=== PATIENT | female | born 1985 | race Caucasian/White ===

== ENCOUNTER → 2018-08-21 | Outpatient (CLI) | payer OTHER | LOC: FIMAGING 10:11 | PROVIDERS: ATTEND Obstetrics & Gynecology | DX: O26.841 Uterine size-date discrepancy, first trimester (principal); Z3A.01 Less than 8 weeks gestation of pregnancy ==

== ENCOUNTER 2018-09-06 18:52 | Emergency (ER) | payer OTHER ==
--- NOTE | 2018-09-06 19:14 | EDPHY ---
H & P Stated Complaint: MISCARRIAGE 08/25 INCREASED HEAVY VAGINAL BLEEDING Time Seen by Provider: 09/06/18 19:10 HPI/ROS: CHIEF COMPLAINT: Vaginal bleeding HISTORY OF PRESENT ILLNESS: The patient is a 33-year-old female who comes to the emergency department complaining of vaginal bleeding and lightheadedness. She miscarried on the of this month a 9 week gestational age . She had a missed AB and was given an abortifacient by her OBGYN. She states that this seemed to go well and she bled for about 2 days with occasional passage of clots since then. She has not had significant bleeding this week until about an hour ago she states that she has used 3 pads and 3 tampons in the last hour. No fever. No nausea vomiting. No diarrhea. No urinary symptoms. Severity: Moderate Modifying factors: None REVIEW OF SYSTEMS: Constitutional: denies: chills, fever, recent illness, recent injury EENTM: denies: blurred vision, double vision, nose congestion Respiratory: denies: cough, shortness of breath Cardiac: denies: chest pain, irregular heart rate, lightheadedness, palpitations Gastrointestinal/Abdominal: denies: abdominal pain, diarrhea, nausea, vomiting, blood streaked stools Genitourinary: denies: dysuria, frequency, hematuria, pain Musculoskeletal: denies: joint pain, muscle pain Skin: denies: lesions, rash, jaundice, bruising Neurological: denies: headache, numbness, paresthesia, tingling, dizziness, weakness Hematologic/Lymphatic: denies: blood clots, easy bleeding, easy bruising Immunologic/allergic: denies: HIV/AIDS, transplant 10 systems reviewed and negative except as noted EXAM: GENERAL: Well-appearing, well-nourished and in no acute distress. HEAD: Atraumatic, normocephalic. EYES: Pupils equal round and reactive to light, extraocular movements intact, sclera anicteric, conjunctiva are normal. ENT: TMs normal, nares patent, oropharynx clear without exudates. Moist mucous membranes. NECK: Normal range of motion, supple without lymphadenopathy or JVD. LUNGS: Breath sounds clear to auscultation bilaterally and equal. No wheezes rales or rhonchi. HEART: Regular rate and rhythm without murmurs, rubs or gallops. ABDOMEN: Soft, nontender, normoactive bowel sounds. No guarding, no rebound. No masses appreciated. : Moderate amount of bleeding, clot in the cervix, cervix dilated. BACK: No CVA tenderness, no spinal tenderness, step-offs or deformities EXTREMITIES: Normal range of motion, no pitting or edema. No clubbing or cyanosis. NEUROLOGICAL: Cranial nerves II through XII grossly intact. Normal speech, normal gait. 5/5 strength, normal movement in all extremities, normal sensation , normal reflexes PSYCH: Normal mood, normal affect. SKIN: Warm, dry, normal turgor, no visible rashes or lesions. Source: Patient Exam Limitations: No limitations - Personal History LMP (Females 10-55): Now Current Tetanus Diphtheria and Acellular Pertussis (TDAP): Yes - Medical/Surgical History Hx Asthma: No Hx Chronic Respiratory Disease: No Hx Diabetes: No Hx Cardiac Disease: No Hx Renal Disease: No Hx Cirrhosis: No Hx Alcoholism: No Hx HIV/AIDS: No Hx Splenectomy or Spleen Trauma: No Other PMH: MISCARRIAGE - Social History Smoking Status: Current every day smoker Alcohol Use: Sober Drug Use: None Constitutional: Initial Vital Signs Temperature (C) 36.9 C 09/06/18 18:56 Heart Rate 104 H 09/06/18 18:56 Respiratory Rate 18 09/06/18 18:56 Blood Pressure 112/77 09/06/18 18:56 O2 Sat (%) 97 09/06/18 18:56 O2 Delivery Mode Room Air Allergies/Adverse Reactions: BEE STING Allergy (Uncoded 06/09/10 13:32) Home Medications: Medication Instructions Recorded Albuterol 09/06/18 Ibuprofen 800 mg PO TID PRN #30 tablet 09/06/18 Methylergonovine Maleate 0.2 mg PO Q6 #5 tab 09/06/18 [Methergine 0.2 mg (*)] Medical Decision Making ED Course/Re-evaluation: I removed the clot from the patient's cervix. There still appears to be some clot in the uterus. Bleeding discontinued for now. Will observe. 8:50 p.m. the patient's bleeding has stopped. She is doing well. Her we discussed her lab results and ultrasound which her reassuring. I have paged her primary doctor who Dao. I will have her follow up within the next day or 2. We discussed indications for returning. 9:15 p.m. I spoke with Dr. Valdez who recommends we give the patient sided tech and then a prescription for Methergine. Also to follow-up in their office Saturday or Saturday. If she has significant hemorrhage between then and now to go to [facility] where they have privileges. Differential Diagnosis: Partial list of the Differential diagnosis considered include but were not limited to; miscarriage, and missed AB, hemorrhage, anemia and although unlikely based on the history and physical exam, I also considered arrhythmia, coagulopathy. - Data Points Laboratory Results: Laboratory Results 09/06/18 19:13 09/06/18 19:13 Medications Given: Discontinued Medications Hydromorphone HCl (Dilaudid) 0.5 mg IVP EDNOW ONE Stop: 09/06/18 20:50 Last Admin: 09/06/18 21:00 Dose: 0.5 mg Sodium Chloride (Ns) 1,000 mls @ 0 mls/hr IV EDNOW ONE; Wide Open PRN Reason: Protocol Stop: 09/06/18 19:18 Last Admin: 09/06/18 20:05 Dose: 1,000 mls Ketorolac Tromethamine (Toradol) 15 mg IVP EDNOW ONE Stop: 09/06/18 22:27 Last Admin: 09/06/18 22:35 Dose: 15 mg Lorazepam (Ativan Injection) 1 mg IVP EDNOW ONE Stop: 09/06/18 22:27 Last Admin: 09/06/18 22:35 Dose: 1 mg Methylergonovine Maleate (Methergine) 0.2 mg PO EDNOW ONE Stop: 09/06/18 21:13 Last Admin: 09/06/18 21:46 Dose: 0.2 mg Methylergonovine Maleate (Methergine) 0.2 mg PO EDNOW ONE Stop: 09/07/18 04:01 Last Admin: 09/06/18 22:39 Dose: 0.2 mg Misoprostol (Cytotec) 800 mcg PO ONCE ONE Stop: 09/06/18 21:31 Last Admin: 09/06/18 21:46 Dose: 800 mcg Ondansetron HCl (Zofran) 4 mg IVP EDNOW ONE Stop: 09/06/18 20:50 Last Admin: 09/06/18 21:00 Dose: 4 mg Departure - Departure Disposition: Home, Routine, Self-Care Clinical Impression: Miscarriage Condition: Fair Instructions: Methylergonovine (By mouth), Miscarriage (ED) Referrals: NONE *PRIMARY CARE P,. [Primary Care Provider] - As per Instructions Veronica Dc MD [Medical Doctor] - 2-3 days, call for appt. Prescriptions: Ibuprofen 800 mg PO TID PRN #30 tablet PRN Reason: Pain, Moderate Methylergonovine Maleate [Methergine 0.2 mg (*)] 0.2 mg PO Q6 #5 tab
[2018-09-06] MEDS ORDERED: NS 1,000 ML IV ONE (19:17)
[2018-09-06 19:34] LABS: PLATELET COUNT 374 10^3/uL (150-400)
[2018-09-06] MEDS ORDERED: ONDANSETRON 4 MG/2 ML VIAL IVP ONE (20:49)
[2018-09-06] MEDS ORDERED: HYDROmorphONE/DILAUDID 2 MG/ML INJ IVP ONE (20:49)
[2018-09-06] MEDS ORDERED: MISOPROSTOL 50 MCG CAP PO ONE (21:06)
[2018-09-06] MEDS ORDERED: METHYLERGONOVINE MAL 0.2 MG TAB PO ONE (21:12)
[2018-09-06] MEDS ORDERED: MISOPROSTOL 200 MCG TAB PO ONE (21:30)
[2018-09-06] MEDS ORDERED: LORazepam 2 MG/ML INJ IVP ONE (22:26)
[2018-09-06] MEDS ORDERED: KETOROLAC 15 MG/1 ML SDV IVP ONE (22:26)
[2018-09-06 23:05] VITALS: BP 96/58
[2018-09-07] MEDS ORDERED: METHYLERGONOVINE MAL 0.2 MG TAB PO ONE (04:00)
== END 2018-09-06 23:03 | disposition home or self-care (01) ==
DX: O03.9 Complete or unspecified spontaneous abortion without complication (principal); E86.9 Volume depletion, unspecified; F17.200 Nicotine dependence, unspecified, uncomplicated
CPT/HCPCS: 96374; J1170; J1885; J2060; J2405